=== PATIENT | male | born 1990 | race Caucasian/White ===

== ENCOUNTER → 2024-07-26 15:45 | Outpatient (REF) | payer BC, SELFPAY | LOC: RAD 15:45 | PROVIDERS: ATTENDING PHYSICIAN Orthopaedic Surgery | DX: S05.50XA Penetrating wound with foreign body of unspecified eyeball, initial encounter (principal) | CPT/HCPCS: 70030 ==

== ENCOUNTER 2024-08-29 09:09 | Outpatient (REF) | payer BC, SELFPAY ==
[2024-08-29 09:30] VITALS: BP 110/76; BP_SYST 75
[2024-08-29 09:34] LABS: % Basophils 0.4 % (0-2); % Eosinophils 1.6 % (0-6); % Lymphocytes 23.1 % (20.5-51.1); % Monocytes 14.2 % (1.7-9.3); % Neutrophils 60.7 % (42.2-75.2); Absolute Eosinophils 0.1 10^3/uL (0-0.7); Absolute Monocytes 0.6 10^3/uL (0.1-0.6); Absolute Neutrophils 2.7 10^3/uL (1.4-6.5); Hematocrit 45.5 % (39.0-52.0); Hemoglobin 15.1 g/dL (13.0-18.0); Mean Corp Hgb Conc. 33.2 g/dL (33.0-37.0); Mean Corpuscular Volume 81.3 fL (80.0-94.0); Mean Platelet Volume 10.4 fL (7.4-10.4); Nucleated Red Blood Cells % 0 % (-); Platelet Count 253 10^3/uL (130-400); Red Cell Dist. Width 13.3 % (11.5-14.5); White Blood Cell Count 4.5 10^3/uL (4.8-10.8)
[2024-08-29 09:44] LABS: INR 0.89; PT 12.6 Sec (11.4-14.6)
[2024-08-29 09:52] LABS: Blood Urea Nitrogen 23 mg/dl (9-20); Calcium 9.4 mg/dl (8.4-10.2); Carbon Dioxide 33 mmol/L (22-30); Chloride 103 mmol/L (98-107); Glucose 95 mg/dl (70-99); Sodium 138 mmol/L (135-145); eGFR > 60.00
[2024-08-29 12:45] VITALS: BP 102/73
[2024-08-29 13:15] VITALS: BP 100/61
[2024-08-29 13:45] VITALS: BP 108/66
[2024-08-29 14:45] VITALS: BP 98/61
[2024-08-29 15:45] VITALS: BP 97/60
[2024-08-29 16:06] LABS: Hematocrit 41.3 % (39.0-52.0)
== END 2024-08-29 16:50 | disposition home or self-care (01) ==
LOC: RADI 09:09
PROVIDERS: Radiology Vascular & Interventional Radiology; ATTENDING PHYSICIAN Specialist; FAMILY PHYSICIAN Physician Assistant
DX: M32.14 Glomerular disease in systemic lupus erythematosus (principal); I12.9 Hypertensive chronic kidney disease with stage 1 through stage 4 chronic kidney disease, or unspecified chronic kidney disease; N18.2 Chronic kidney disease, stage 2 (mild)
CPT/HCPCS: 36415; 50200; 76942; 80048; 85014; 85018; 85025; 85610; 88305; 99152; 99153